=== PATIENT | female | born 1940 | race Two or more races ===

== ENCOUNTER 2018-11-29 06:59 | Emergency (ER) | payer SELFPAY ==
[~2018-11-29] VITALS: Ht 152.4 cm; Wt 75.4 kg
[2018-11-29 07:09] VITALS: BP 139/86
[2018-11-29] MEDS ORDERED: LIDOCAINE 1% INJ 50 ML MDV IJ ONE (07:28)
[2018-11-29] MEDS ORDERED: CEFTRIAXONE 1 G VIAL ONE (07:28)
[2018-11-29] MEDS ORDERED: CEFTRIAXONE 1 G VIAL IM ONE (07:30)
--- NOTE | 2018-11-29 07:46 | NUR ---
Patient discharged to home in stable condition. Written and verbal after care instructions given. Patient verbalizes understanding of instruction.
== END 2018-11-29 07:45 | disposition home or self-care (01) ==
LOC: ER 07:01
DX: L03.211 Cellulitis of face (principal)
CPT/HCPCS: 96372; 99283; A4606; J0696; J3490; Z7610